=== PATIENT | male | born 1960 | race Caucasian/White ===

== ENCOUNTER 2022-01-25 06:18 | Day surgery (SDC) | payer BC ==
[~2022-01-25 06:18] MED LIST: Lactated Ringers 1,000 ML IV SCH; Sodium Chloride 0.9% 10 ML Syringe FLUSH PRN
[2022-01-25] MEDS ORDERED: Lidocaine 1% PF 2 ML SDV INJECT ONE (06:19)
[2022-01-25] MEDS ORDERED: Propofol 200 MG/20 ML SDV IV ONE (06:19)
== END 2022-01-25 08:49 | disposition home or self-care (01) ==
LOC: FB.SDS 06:18
PROVIDERS: ATTEND Surgery
DX: Z12.11 Encounter for screening for malignant neoplasm of colon (principal); K63.5 Polyp of colon; K57.30 Diverticulosis of large intestine without perforation or abscess without bleeding; E78.5 Hyperlipidemia, unspecified; K21.9 Gastro-esophageal reflux disease without esophagitis; Z79.899 Other long term (current) drug therapy; Z98.890 Other specified postprocedural states; Z87.891 Personal history of nicotine dependence
CPT/HCPCS: 00812; 45385; 88305; J2704; J7120

== ENCOUNTER 2023-01-31 00:09 | Emergency (ER) | payer BC ==
[2023-01-31] MEDS ORDERED: Sodium Chloride 0.9% 1,000 ML IV ONE (00:21)
[2023-01-31] MEDS ORDERED: Ondansetron 4 MG/2 ML SDV IVPUSH ONE (00:21)
[2023-01-31] MEDS ORDERED: Ketorolac 30 MG/ML SDV IVPUSH ONE (00:21)
[2023-01-31] MEDS ORDERED: Iopamidol 755 Mg/ML 100 ML Bottle IV ONE (01:07)
[2023-01-31 01:08] LABS: ESTIMATED GFR 75 mL/min (>60)
[2023-01-31] MEDS ORDERED: Acetaminophen/HYDROcodone 325-5 MG Tab PO ONE (02:14)
== END 2023-01-31 02:28 | disposition home or self-care (01) ==
LOC: FB.ED 00:09
DX: K80.00 Calculus of gallbladder with acute cholecystitis without obstruction (principal); E66.9 Obesity, unspecified; Z68.30 Body mass index [BMI] 30.0-30.9, adult; Z20.822 Contact with and (suspected) exposure to COVID-19
CPT/HCPCS: 36415; 74177; 80053; 81001; 83690; 84484; 85025; 86140; 96361; 96374; 96375; 99284; 99284-25; A9270-GY; J1885; J2405; J7030; Q9967; U0002

== ENCOUNTER 2023-02-01 09:28 | Day surgery (SDC) | payer BC ==
[2023-02-01] MEDS ORDERED: Midazolam 1 MG/ML 2 ML SDV IV ONE (09:29)
[2023-02-01] MEDS ORDERED: Succinylcholine 200 MG/10 ML MDV IV ONE (09:29)
[2023-02-01] MEDS ORDERED: Labetalol 100 MG/20 ML MDV IV ONE (09:29)
[2023-02-01] MEDS ORDERED: Neostigmine Methylsulfate 10 MG/10 ML MDV IVPUSH ONE (09:29)
[2023-02-01] MEDS ORDERED: Dexamethasone 4 MG/ML 5 ML MDV IVPUSH ONE (09:29)
[2023-02-01] MEDS ORDERED: diphenhydrAMINE 50 MG/ML SDV IVPUSH ONE (09:29)
[2023-02-01] MEDS ORDERED: Ketorolac 30 MG/ML SDV IVPUSH ONE (09:29)
[2023-02-01] MEDS ORDERED: Ondansetron 4 MG/2 ML SDV IVPUSH ONE (09:29)
[2023-02-01] MEDS ORDERED: Propofol 200 MG/20 ML SDV IV ONE (09:29)
[2023-02-01] MEDS ORDERED: Lactated Ringers 1,000 ML IV ONE ×2 (09:29→09:38)
[2023-02-01] MEDS ORDERED: Glycopyrrolate 0.2 MG/ML 5 ML MDV IV ONE (09:29)
[2023-02-01] MEDS ORDERED: fentaNYL 100 MCG/2 ML SDV IV ONE (09:29)
[2023-02-01] MEDS ORDERED: Rocuronium 100 MG/10 ML MDV IV ONE (09:29)
[2023-02-01] MEDS ORDERED: Sodium Chloride 0.9% 10 ML Syringe FLUSH PRN (09:30)
[2023-02-01] MEDS ORDERED: Lactated Ringers 1,000 ML IV SCH (09:30)
[2023-02-01] MEDS ORDERED: ceFAZolin 2 GM Vial IVPUSH ONE (09:30)
[2023-02-01] MEDS ORDERED: ceFAZolin 2 GM in Sodium Chloride 0.9% 100 ML IV ONE (09:30)
[2023-02-01 10:19] LABS: ESTIMATED GFR 96 mL/min (>60)
[2023-02-01] MEDS ORDERED: Acetaminophen/HYDROcodone 325-10 MG Tab PO ONE (13:54)
== END 2023-02-01 15:30 | disposition home or self-care (01) ==
LOC: FB.SDS 09:28
PROVIDERS: ATTEND Surgery
DX: K80.12 Calculus of gallbladder with acute and chronic cholecystitis without obstruction (principal); R79.89 Other specified abnormal findings of blood chemistry; R79.82 Elevated C-reactive protein (CRP)
CPT/HCPCS: 00790; 36415; 47562; 80053; 85025; 86140; 88304; 93005; A9270; J0330; J0690; J1100; J1200; J1885; J2250; J2405; J2704; J2710; J3010; J3490; J7120; 93010